=== PATIENT | male | born 1975 | race Caucasian/White ===

== ENCOUNTER → 2024-06-25 | Emergency (ER) | payer SELFPAY ==
[~2024-06-25] VITALS: Ht 165.1 cm; Wt 86.0 kg
[2024-06-25 18:54] VITALS: BP 162/105; TEMP 98; O2SAT 99
[2024-06-25 18:58] VITALS: PULSE 82; RESP 18; O2SAT 99
[2024-06-25 19:46] LABS: BASOPHILS % 0.3 % (0.0-2.0); EOSINOPHILS % 6.4 % (0.0-5.0); HEMATOCRIT. 48.1 % (42.0-52.0); HEMOGLOBIN. 15.9 g/dL (14.0-18.0); LYMPHOCYTES % 20.8 % (20.0-50.0); MEAN CORPUSCULAR HEMOGLOBIN 27.6 pg (28.0-32.0); MEAN CORPUSCULAR HGB CONC 33.1 g/dL (31.0-37.0); MEAN CORPUSCULAR VOLUME 83.4 fL (80.0-94.0); MEAN PLATELET VOLUME 8.7 fl (7.4-10.4); MONOCYTES % 7.4 % (2.0-8.0); NEUTROPHILS % 65.1 % (40.0-76.0); PLATELET 301 x1000/uL (130-400); RED BLOOD CELL COUNT 5.77 mill/uL (4.7-6.1); RED CELL DISTRIBUTION WIDTH 16.8 % (11.6-14.6)
[2024-06-25 19:56] LABS: CHLORIDE 104 mEq/L (98-107); POTASSIUM 3.7 mEq/L (3.5-5.1); SODIUM 141 mEq/L (136-145)
[2024-06-25 19:57] LABS: CARBON DIOXIDE 32 mEq/L (21-32); INR 0.9; PARTIAL THROMBOPLASTIN TIME 25.7 sec (23.4-31.0); PROTHROMBIN TIME 10.4 sec (9.6-11.0)
[2024-06-25 20:03] LABS: CREATININE 1.1 mg/dL (0.6-1.3); GLUCOSE 173 mg/dL (70-105); TROPONIN I HIGH SENSITIVITY 49 ng/L (3.0-53); UREA NITROGEN BLOOD 10 mg/dL (9-23)
== END ==
LOC: ER 18:38
DX: R07.89 Other chest pain (principal); Z53.21 Procedure and treatment not carried out due to patient leaving prior to being seen by health care provider
CPT/HCPCS: 36415; 71045; 80048; 84484; 85025; 93005; 99285